=== PATIENT | female | born 1975 | race Caucasian/White ===

== ENCOUNTER 2024-08-11 22:57 | Emergency (ER) | payer MEDICAID, SELFPAY ==
[2024-08-11 22:59] VITALS: BP 155/65; PULSE 88; RESP 20; TEMP 36.6; O2SAT 98; BMI 68.7
--- NOTE | 2024-08-11 23:58 | EX.ED.DYSGE1 ---
HPI History of Present Illness Chief Complaint: Lower Extremity Injury Detail of Chief Complaint: Bilateral lower extremity pain Informant: patient Onset/Context/Timing Onset: Today and Hours Context: Sudden Onset Timing: Intermittent (Duration 45 minutes) Quality: Pain Location: Originally left foot then went up towards her groin region and RLE Current Severity: Gone Maximum Severity: Severe Worsened by: Walking Relieved by: Nothing Associated Symptoms Associated Symptoms: Severe pain otherwise negative Narrative Narrative: Patient is a 49-year-old woman with history of hypothyroidism, iron deficiency anemia and depression. She developed pain in her left foot. She states it was like a tight severe cramp. She attempted to need the pain out. This was not beneficial. She then began to walk on her left foot and states the pain migrated towards the groin and also developed right lower extremity pain. The pain was circumferential bilaterally. There is no associated paresthesia, anesthesia or motor weakness. She denied diaphoresis, nausea or vomiting. She denies symptoms of claudication. She denies history of VTE. She denied any discoloration of her leg and denies swelling compared to her normal. Patient's BMI is 68.7. Prior similar symptoms: No Recent Illness/Hospitalization: No [facility] Medical History PCOS (polycystic ovarian syndrome) Obesity Hypothyroidism Home Medications ?Medication ?Instructions ?Recorded ?Last Taken ?Type bupropion HCl 150 mg tablet,12 hr 150 mg PO BID 08/11/24 Unknown History sustained-release (Wellbutrin SR) ferrous sulfate 325 mg (65 mg 325 mg PO DAILY 08/11/24 Unknown History iron) tablet (Feosol) furosemide 40 mg tablet (Lasix) 40 mg PO DAILY PRN edema 08/11/24 Unknown History levothyroxine 112 mcg tablet 112 mcg PO DAILY 08/11/24 Unknown History (Levo-T) liothyronine 5 mcg tablet (Cytomel) 5 mcg PO DAILY 08/11/24 Unknown History Allergy/AdvReac Type Severity Reaction Status Date / Time vancomycin Allergy Severe Shortness Verified 08/11/24 22:59 of breath Social History Smoking Status: Former smoker ROS ROS ED Constitutional Constitutional ED: Denies chills, fever(s), subjective, sweats or weight loss Cardiovascular Cardiovascular: Denies chest pain, orthopnea, palpitations or paroxysmal nocturnal dyspnea Respiratory/Chest Respiratory/Chest: Denies cough, dyspnea, dyspnea on exertion, orthopnea or paroxysmal nocturnal dyspnea Musculoskeletal Musculoskeletal: Reports other Details: HPI narrative ; Denies arthralgias or myalgias Integumentary Denies rash Neurologic Neurologic: Denies paresthesias or weakness Hematologic/Lymphatic Hematologic/Lymphatic: Reports systems reviewed and no addt'l complaints, except as documented EXAM Physical Exam Const Vital Signs: 08/11/24 22:59 Temperature 97.9 F Temperature Source Oral Pulse Rate 88 Respiratory Rate 20 H Blood Pressure 155/65 H Blood Pressure Mean 95 Pulse Ox 98 Oxygen Delivery Method Room Air Positive well nourished and well developed Constitutional Narrative: BMI is 68.7. Patient is supine on the examination cot. She is resting comfortably. General Appearance ED: well developed and NAD; Negative for cyanotic, diaphoretic or pallor HEENT Reports moist mucous membranes HEENT Narrative: Head is atraumatic normocephalic. Patient does wear corrective lenses. Ears normal. Eyes PERRL and EOMs intact bilaterally General Eye ED: Negative for scleral icterus Resp normal respiratory effort Cardio regular rate and regular rhythm Extremity normal to inspection Extremity Narrative: There is no swelling, asymmetry, discoloration, leg vein distention, palpable cords or tenderness on the distribution deep venous system. DP and PT pulse are 2+ and symmetric. Neuro oriented x3 and CN's II-XII intact bilaterally Neuro Narrative: Sensation in the right and left lower extremity are intact. There is no clonus. There is no Babinski sign. Psych mental status grossly normal Skin no rashes or lesions noted, no wounds and skin turgor normal General Skin Exam: Negative for jaundice or pallor MDM MDM MDM Narrative Medical decision making narrative: Blood pressure is slightly elevated 155/65. Vital signs otherwise unremarkable. Since patient is on a loop diuretic will obtain BMP to assess potassium, sodium and renal function. With patient not presently having pain in a normal physical exam uncertain what may have caused her pain other than possible electrolyte abnormality versus muscle cramping. History & Record Review Additional record(s) reviewed:: No prior records Lab Data Labs: Laboratory Results - last 24 hr 08/11/24 23:33 Sodium 141 Potassium 3.9 Chloride 107 Carbon Dioxide 27.0 Anion Gap 7 BUN 26 H Creatinine 1.10 H Estim Creat Clear Calc 99.48 Est GFR (MDRD) Af Amer 68 Est GFR (MDRD) Non-Af 56 L BUN/Creatinine Ratio 23.6 H Glucose 154 H Calcium 8.7 Treatment and Re-Evaluation :: Patient was informed her blood sugars elevated this will need to be assessed as well as elevation of her creatinine with an estimated GFR 56. She also was informed that her blood pressure is elevated. She was instructed to make an appointment with her provider in 1 to 2 weeks for repeat testing. Discharge Plan Triage Chief Complaint: Lower Extremity Injury ED Provider: Trae Hassan Dx/Rx/DC Orders Clinical Impression: Bilateral lower extremity pain, Nondiabetic hyperglycemia, Elevated serum creatinine, Elevated blood-pressure reading without diagnosis of hypertension Instructions: ED Hypertension, To Be Confirmed, ED Pain, Acute, Uncertain Cause, ED Hyperglycemia New Poss Diabetes Prescriptions: No Action levothyroxine [Levo-T] 112 mcg tablet 112 mcg PO DAILY bupropion HCl [Wellbutrin SR] 150 mg tablet sustained-release 12 hr 150 mg PO BID liothyronine [Cytomel] 5 mcg tablet 5 mcg PO DAILY furosemide [Lasix] 40 mg tablet 40 mg PO DAILY PRN (Reason: edema) ferrous sulfate [Feosol] 325 mg (65 mg iron) tablet 325 mg PO DAILY Primary Care Provider: Yvonne Montesinos NP Referrals: Yvonne Montesinos NP, [employer]OR [employer]NAGEMENT-[employer] [Primary Care Provider] - 1-2 Weeks Print Language: Icelandic Disposition Disposition: Home, Self Care
[2024-08-12 00:19] LABS: Anion Gap 7 (5-15); BUN 26 mg/dL (7-18); BUN/Creat Ratio 23.6 RATIO (10-20); Calcium,Total 8.7 mg/dL (8.5-10.1); Chloride 107 mmol/L (98-107); EST Glomerular Filtration Rate 56 mL/min (>60); Est Glom Filt Rate - Afr Amer 68 mL/min (>60); Estimated Creatinine Clearance 99.48 ml/min; Glucose 154 mg/dL (74-106); Potassium 3.9 mmol/L (3.5-5.1); Sodium Level 141 mmol/L (136-145)
[2024-08-12 00:53] VITALS: BP 151/78; PULSE 80; RESP 16; TEMP 36.6; O2SAT 100
== END 2024-08-12 00:55 | disposition home or self-care (01) ==
PROVIDERS: Emergency Provider Emergency Medicine; PCP Nurse Practitioner Family; Visit Provider Emergency Medicine
DX: M79.604 Pain in right leg (principal); M79.605 Pain in left leg; R03.0 Elevated blood-pressure reading, without diagnosis of hypertension; R73.9 Hyperglycemia, unspecified; Z79.899 Other long term (current) drug therapy; Z87.891 Personal history of nicotine dependence
CPT/HCPCS: 36415; 80048; 99282